=== PATIENT | female | born 1960 | race Two or more races ===

== ENCOUNTER 2023-03-13 08:45 | Outpatient (CLI) | payer OTHER | END 2023-03-13 08:49 | disposition home or self-care (01) | LOC: SONOGRAMA 08:45 | PROVIDERS: ATTEND Pathology Anatomic Pathology & Clinical Pathology | DX: D34 Benign neoplasm of thyroid gland (principal); E04.1 Nontoxic single thyroid nodule; E07.9 Disorder of thyroid, unspecified ==